=== PATIENT | female | born 1985 | race Caucasian/White ===

== ENCOUNTER 2019-04-21 05:30 | Day surgery (SDC) | payer OTHER ==
[2019-04-21] VITALS (8 sets, daily range): BP systolic 111–132; BP diastolic 30–76; PULSE 49–64; RESP 11–18; Ht 162.6 cm; Wt 133.0 kg
[~2019-04-21] VITALS: Ht 162.6 cm; Wt 133.0 kg
[2019-04-21] MEDS ORDERED: BUPIVACAINE 0.25% (MPF) 30 ML INJ ONE (06:44)
[2019-04-21] MEDS ORDERED: SUCCINYLCHOLINE CHLORIDE 100 MG/5 ML SYG IV ONE (07:00)
[2019-04-21] MEDS ORDERED: CEFAZOLIN 2 GM/50 ML (PMX) 50 ML IVPB ONE (07:00)
[2019-04-21] MEDS ORDERED: CEFAZOLIN 1 GM INJ ONE ×2 (07:00→07:32)
[2019-04-21] MEDS ORDERED: DESFLURANE 15 MIN ONE (07:00)
[2019-04-21] MEDS ORDERED: SOD CHLORIDE 0.9% 1,000 ML IV SCH (07:00)
[2019-04-21] MEDS ORDERED: BUPIVACAINE 0.25% (MPF) 30 ML INJ INJ ONE (07:03)
--- NOTE | 2019-04-21 07:19 | PREAC ---
Date/Time of Note Date/Time of Note DATE: 04/21/19 TIME: 07:18 Anesthesia Eval and Record Evaluation Time Pre-Procedure Interview DATE: 04/21/19 TIME: 07:18 Age 34 Sex female NPO: 8 hrs Preoperative diagnosis SYMPTOMATIC CHOLELITHIASIS Planned procedure LAP RAHUL Past Medical History Past Medical History: Includes GI: Morbid obesity (BMI:50) Surgery & Anesthesia Issues No known issue Meds Anticoagulation: No Beta Kayla within 24 hr: No Reason Beta Kayla not given: Pt. not on B-Kayla No Active Prescriptions or Reported Meds Current Medications Cefazolin Sodium/ Dextrose 50 ml @ 100 mls/hr PREOP ONCE IVPB ; Start 04/21/19 at 07:00; Stop 04/21/19 at 07:29 Sodium Chloride 1,000 ml @ 75 mls/hr [id number] IV Last administered on 04/21/19at 06:56; Admin Dose 75 MLS/HR; Start 04/21/19 at 07:00 Meds reviewed: Yes Allergies Coded Allergies: No Known Allergy (Unverified , 04/21/19) Allergies Reviewed: Yes Labs/Studies Labs Reviewed: Reviewed by anesthesiologist Result Diagram: 04/21/19 0600 Laboratory Tests 04/21/19 06:00 test: Negative Pre-procedure Exam Last vitals Vital Signs Date Temp Pulse Resp B/P (MAP) Pulse Ox O2 O2 Flow FiO2 Time Delivery Rate 04/21/19 97.6 49 18 111/48 93 Room Air 06:45 (69) Airway: Adequate mouth opening, Adequate thyromental dist Mallampati: Mallampati II Teeth: Normal Lung: Normal Heart: Normal ASA Physical Status ASA physical status: 3 Emergency: None Planned Anesthetic General/MAC: ETT Nerve block: TAP (bilateral) Planned Pain Management Single shot nerve block, Parenteral pain med Pre-operative Attestations Prior to commencing anesthesia and surgery, the patient was re-evaluated, there was verification of: *The patient's identity *The results of appropriate recent lab work and preoperative vital signs *The above evaluation not changing prior to induction *Anesthetic plan, risk benefits, alternative and complications discussed with patient/family; questions answered; patient/family understands, accepts and wishes to proceed. Dayo Campbell M.D. Apr 21, 2019 07:19
[2019-04-21] MEDS ORDERED: FENTAnyl 50 MCG/ML VIAL IV PRN ×3 (07:30)
[2019-04-21] MEDS ORDERED: MIDAZOLAM 1 MG/ML 2 ML INJ IV PRN (07:30)
[2019-04-21] MEDS ORDERED: TRIMETHOBENZAMIDE 100 MG/ML VIAL IM PRN (07:30)
[2019-04-21] MEDS ORDERED: DIPHENHYDRAMINE 50 MG INJ IV PRN (07:30)
[2019-04-21] MEDS ORDERED: EPHEDrine 25 MG/5 ML SYG IV PRN (07:30)
[2019-04-21] MEDS ORDERED: hydrALAzine 20 MG INJ IV PRN (07:30)
[2019-04-21] MEDS ORDERED: MEPERIDINE 25 MG INJ IV PRN (07:30)
[2019-04-21] MEDS ORDERED: LABETALOL HCL 20MG INJ IV PRN (07:30)
[2019-04-21] MEDS ORDERED: OXYCODONE/ACETAMINOPHEN (5/325) TAB PO PRN ×2 (07:30)
[2019-04-21] MEDS ORDERED: ALBUTEROL 0.083% (NEB) 2.5 MG/3 ML AMP HHN PRN (07:30)
[2019-04-21] MEDS ORDERED: ONDANSETRON 4 MG INJ IV PRN (07:30)
[2019-04-21] MEDS ORDERED: HYDROmorphONE 1 MG/5 ML IV SYRINGE IV PRN ×3 (07:30)
[2019-04-21] MEDS ORDERED: IPRATROPIUM (NEB) 0.5 MG/2.5 ML AMP HHN PRN (07:30)
[2019-04-21] MEDS ORDERED: ROCURONIUM 50 MG INJ ONE (07:32)
[2019-04-21] MEDS ORDERED: NEOSTIGMINE 3 MG/3 ML SYRINGE ONE (07:32)
[2019-04-21] MEDS ORDERED: PROPOFOL 20 ML ONE (07:32)
[2019-04-21] MEDS ORDERED: GLYCOPYRROLATE 0.4 MG INJ ONE (07:32)
[2019-04-21] MEDS ORDERED: FENTAnyl 50 MCG/ML VIAL ONE (07:33)
[2019-04-21] MEDS ORDERED: DEXAMETHASONE 4 MG/ML 5 ML INJ ONE (07:33)
[2019-04-21] MEDS ORDERED: MIDAZOLAM 1 MG/ML 2 ML INJ ONE (07:33)
[2019-04-21] MEDS ORDERED: ONDANSETRON 4 MG INJ ONE (07:33)
[2019-04-21] MEDS ORDERED: ROPIVACAINE 0.5 % 30 ML VIAL ONE (07:44)
[2019-04-21] MEDS ORDERED: ACETAMINOPHEN 1000MG/100ML IV 65 ML IVPB ONE (08:30)
[2019-04-21] MEDS ORDERED: SUGAMMADEX SODIUM 200 MG/2 ML VIAL IV ONE (08:33)
[2019-04-21] MEDS ORDERED: KETOROLAC 30 MG INJ ONE (08:42)
--- NOTE | 2019-04-21 08:44 | OPR ---
Date/Time of Note Date/Time of Note DATE: 04/21/19 TIME: 08:40 Operative Report Procedure Date: Apr 21, 2019 Preoperative Diagnosis symptomatic gallstones Postoperative Diagnosis same Operation/Procedure Performed laparoscopic cholecystectomy Surgeon see signature line [employer]ter none Anesthesia Type: general Estimated Blood Loss: 0 - 10 ml's Transfusion none Specimen gallbladder Grafts/Implants none Complications none Pt Condition Post Procedure: stable Indications This is a 34-year-old female with some tender gallstones. She required surgical excision of her gallbladder. Risks alternatives benefits and personally discussed the patient. Potential complications including but not limited to bleeding infection common bile duct injury intra-abdominal tissue injury were discussed the patient. Patient expressed understanding consents to the operation. Procedure Description Patient is taken to the OR and prepped and draped in usual sterile fashion. Surgical time was performed. IV antibiotics given. Supraumbilical midline incision was made with a 15 blade. Dissection with cautery skin onto the fascia. 0 Vicryl stay sutures were placed on either side of the midline. The fascia was opened and a Martinez trocar was introduced. Pneumoperitoneum was established. Midepigastric 12 mm optical trochars placed under direct visualization. Right upper quadrant upper flank 5 mm optical trochars were placed under direct visualization. Upon initial inspection there is some adhesions to the gallbladder. This was taken down bluntly. The gallbladder was grasped in the fundus and retracted and lateral cephalad direction. [place] graspers used to dissect out the cystic duct and cystic artery. The critical view was established. The cystic duct is divided with the clips proximal clip distal and the divisions performed laparoscopic scissors. Cystic artery was divided to close proximal to distal and the divisions performed laparoscopic scissors. The gallbladder was taken of the gallbladder bed. Good hemostasis established. The gallbladder is retrieved using Endo Catch bag. Minimal suction irrigation was used. All ports removed under direct visualization. Supraumbilical midline incision was then closed with a [id number] 0 Vicryl suture. Skin is closed and skin geni. A tap block was provided by the anesthesiologist at the beginning the case. Dry dressings were applied. Fer QUIGLEY Apr 21, 2019 08:44
--- NOTE | 2019-04-21 08:54 | PAC ---
Date/Time of Note Date/Time of Note DATE: 04/21/19 TIME: 08:54 Post-Anesthesia Notes Post-Anesthesia Note Last documented vital signs Vital Signs Date Temp Pulse Resp B/P (MAP) Pulse Ox O2 O2 Flow FiO2 Time Delivery Rate 04/21/19 97.6 49 18 111/48 93 Room Air 06:45 (69) Activity: WNL Respiratory function: WNL Cardiovascular function: WNL Mental status: Baseline Pain reasonably controlled: Yes Hydration appropriate: Yes Nausea/Vomiting absent: Yes Dayo Campbell M.D. Apr 21, 2019 08:54
[2019-04-21] MEDS ORDERED: HYDROCODONE/APAP (5/325) TAB PO ONE (09:00)
== END 2019-04-21 11:20 | disposition home or self-care (01) ==
LOC: SDS 05:30
PROVIDERS: ATTEND Surgery
DX: K80.10 Calculus of gallbladder with chronic cholecystitis without obstruction (principal)
CPT/HCPCS: 47562; 80053; 85025; 85610; 85730; 88304; J0131; J0690; J1100; J2250; J2405; J2795; J3010; Z7512; Z7610; J1885; J2710